=== PATIENT | female | born 1945 | race Caucasian/White ===

== ENCOUNTER 2019-07-13 09:09 | Inpatient (IN) ==
[2019-07-13] MEDS ORDERED: 0.9 % Sodium Chloride 1,000 ML IVC ONE (09:21)
[2019-07-13] MEDS ORDERED: Ipratropium/Albuterol Neb 3 ML IH ONE (09:21)
[2019-07-13] MEDS ORDERED: Benzonatate 100 MG CAPSULE PO ONE (09:22)
[2019-07-13] MEDS ORDERED: levoFLOXacin 500 MG/100 ML 500 MG/100 ML BAG IVPB ONE (09:47)
[2019-07-13 09:49] LABS: Basophils % 0.2 %; Eosinophils # 0.1 K/mcL (0.0-0.6); Eosinophils % 1.2 %; Hematocrit 43.4 % (35.3-44.9); Hemoglobin 13.9 g/dL (11.5-15.4); Immature Granulocytes % 0.2 % (0-4); Lymphocytes # 0.5 K/mcL (0.6-4.6); Lymphocytes % 12.2 %; Mean Corpuscular Hemoglobin 30.2 pg (28.0-33.3); Mean Corpuscular Volume 94.1 fL (83.0-100.0); Mean Platelet Volume 9.9 fL (9.4-12.4); Monocytes # 0.2 K/mcL (0.0-1.3); Monocytes % 5.3 %; Neutrophils # 3.4 K/mcL (1.6-8.9); Platelet Count 163 K/mcL (140-400); Red Blood Count 4.61 M/mcL (3.82-4.97); Red Cell Distribution Width 13.9 % (11.5-14.5); Segmented Neutrophils % 80.9 %; White Blood Count 4.2 K/mcL (4.3-11.1)
[2019-07-13 10:02] LABS: BUN/Creatinine Ratio 16 (6-26); Blood Urea Nitrogen 11 mg/dL (8-23); Calcium 8.8 mg/dL (8.6-10.3); Carbon Dioxide 30 mEq/L (23-29); Chloride 98 mEq/L (98-107); Glucose 108 mg/dL (70-105); Osmolality,Calculated 282 (280-300); Potassium 3.3 mEq/L (3.5-5.1); Sodium 136 mEq/L (136-145); eGFR For African Americans > 60 (> 60); eGFR For Non-African Americans > 60 (> 60)
[2019-07-13] MEDS ORDERED: *HR* Enoxaparin 40 MG/0.4 ML SYRINGE SQ ONE (10:22)
[2019-07-13] MEDS ORDERED: *HR* Heparin 5,000 UNIT/ML VIAL IVP PRN (10:34)
[2019-07-13] MEDS ORDERED: *HR* Heparin 5,000 UNIT/ML VIAL IVP ONE (10:34)
[2019-07-13] MEDS ORDERED: Ondansetron 4 MG/2 ML VIAL IVP PRN (10:37)
[2019-07-13] MEDS ORDERED: Naloxone 0.4 MG/ML INJ IVP PRN (10:37)
[2019-07-13] MEDS: Heparin 25,000 UNIT/250 ML D5W 25,000 UNIT/250 ML IV.SOLN IVC SCH (10:59)
[2019-07-13] MEDS: DilTIAZem 50 MG in 0.9 % Sodium Chloride 40 ML IVC SCH (11:07)
[2019-07-13 12:06] LABS: Adenovirus Not Detected (Not Detect); Bordetella Pertussis Not Detected (Not Detect); Chlamydophila pneumoniae Not Detected (Not Detect); Coronavirus 229E Not Detected (Not Detect); Coronavirus HKU1 Not Detected (Not Detect); Coronavirus NL63 Not Detected (Not Detect); Coronavirus OC43 Not Detected (Not Detect); Human Metapneumovirus DETECTED (Not Detect); Human Rhinovirus/Enterovirus Not Detected (Not Detect); Influenza A Subtype 2009 H1 Not Detected (Not Detect); Influenza B Not Detected (Not Detect); Mycoplasma pneumoniae Not Detected (Not Detect); Parainfluenza Virus 1 Not Detected (Not Detect); Parainfluenza Virus 2 Not Detected (Not Detect); Parainfluenza Virus 3 Not Detected (Not Detect); Parainfluenza Virus 4 Not Detected (Not Detect); Respiratory Syncytial Virus Not Detected (Not Detect)
[2019-07-13 12:44] LABS: Magnesium 1.9 mg/dL (1.6-2.6); Phosphorous 2.1 mg/dL (2.7-4.5)
[2019-07-13 12:47] LABS: Hematocrit 41.1 % (35.3-44.9); Hemoglobin 13.3 g/dL (11.5-15.4); Mean Corpuscular HGB Conc 32.4 g/dL (31.6-35.5); Mean Corpuscular Hemoglobin 30.4 pg (28.0-33.3); Mean Corpuscular Volume 93.8 fL (83.0-100.0); Platelet Count 144 K/mcL (140-400); Red Blood Count 4.38 M/mcL (3.82-4.97); White Blood Count 3.5 K/mcL (4.3-11.1)
[2019-07-13 12:52] LABS: INR 1.2; Prothrombin Time 13.3 Seconds (9.4-12.1)
[2019-07-13 12:54] LABS: Heparin anti-factor XA UFH 1.51 IU/mL (0.30-0.70)
[2019-07-13] MEDS: 0.9 % Sodium Chloride 1,000 ML IVC SCH (12:55)
[2019-07-13 12:57] LABS: Thyroid Stimulating Hormone 2.188 mcIU/mL (0.340-5.600)
[2019-07-13] MEDS: Ipratropium/Albuterol Neb 3 ML IH SCH ×2 (15:33→21:46)
[2019-07-14] MEDS: 0.9 % Sodium Chloride 1,000 ML IVC SCH (00:13)
[2019-07-14] MEDS: DilTIAZem 50 MG in 0.9 % Sodium Chloride 40 ML IVC SCH ×4 (04:06→16:39)
[2019-07-14] MEDS: Ipratropium/Albuterol Neb 3 ML IH SCH ×4 (04:13→20:29)
[2019-07-14 04:55] LABS: Hematocrit 38.4 % (35.3-44.9); Hemoglobin 12.5 g/dL (11.5-15.4); Immature Granulocytes % 0.6 % (0-4); Lymphocytes % 26.2 %; Mean Corpuscular HGB Conc 32.6 g/dL (31.6-35.5); Mean Corpuscular Hemoglobin 30.7 pg (28.0-33.3); Mean Corpuscular Volume 94.3 fL (83.0-100.0); Mean Platelet Volume 9.7 fL (9.4-12.4); Monocytes % 6.3 %; Platelet Count 144 K/mcL (140-400); Red Blood Count 4.07 M/mcL (3.82-4.97); Red Cell Distribution Width 14.4 % (11.5-14.5); Segmented Neutrophils % 65.7 %; White Blood Count 3.5 K/mcL (4.3-11.1)
[2019-07-14 04:56] LABS: Basophils % 0.3 %; Eosinophils % 0.9 %; Lymphocytes # 0.9 K/mcL (0.6-4.6); Monocytes # 0.2 K/mcL (0.0-1.3); Neutrophils # 2.3 K/mcL (1.6-8.9)
[2019-07-14 05:18] LABS: BUN/Creatinine Ratio 16 (6-26); Blood Urea Nitrogen 9 mg/dL (8-23); Calcium 7.9 mg/dL (8.6-10.3); Carbon Dioxide 25 mEq/L (23-29); Chloride 105 mEq/L (98-107); Glucose 103 mg/dL (70-105); Osmolality,Calculated 283 (280-300); Potassium 3.3 mEq/L (3.5-5.1); Sodium 137 mEq/L (136-145); eGFR For African Americans > 60 (> 60); eGFR For Non-African Americans > 60 (> 60)
[2019-07-14] MEDS ORDERED: levoFLOXacin 750 MG/150 ML 750 MG/150 ML BAG IVPB SCH (09:00)
[2019-07-14] MEDS: Heparin 25,000 UNIT/250 ML D5W 25,000 UNIT/250 ML IV.SOLN IVC SCH (09:28)
[2019-07-14] MEDS ORDERED: Warfarin perPT PO PRN (18:00)
[2019-07-14] MEDS ORDERED: *HR* Warfarin 3 MG TABLET PO ONE (18:00)
[2019-07-14] MEDS ORDERED: DilTIAZem CD (24hr) 120 MG CAP.ER.24H PO ONE ×2 (19:11→23:15)
[2019-07-15] MEDS: Ipratropium/Albuterol Neb 3 ML IH SCH ×2 (04:00→10:12)
[2019-07-15 04:56] LABS: Mean Corpuscular HGB Conc 31.6 g/dL (31.6-35.5); Mean Corpuscular Hemoglobin 29.4 pg (28.0-33.3); Mean Corpuscular Volume 93.1 fL (83.0-100.0); Mean Platelet Volume 9.6 fL (9.4-12.4); Platelet Count 159 K/mcL (140-400); Red Blood Count 4.08 M/mcL (3.82-4.97); Red Cell Distribution Width 14.2 % (11.5-14.5); White Blood Count 5.5 K/mcL (4.3-11.1)
[2019-07-15 05:03] LABS: INR 1.1; Prothrombin Time 12.1 Seconds (9.4-12.1)
[2019-07-15 05:15] LABS: BUN/Creatinine Ratio 23 (6-26); Blood Urea Nitrogen 11 mg/dL (8-23); Carbon Dioxide 24 mEq/L (23-29); Chloride 106 mEq/L (98-107); Glucose 102 mg/dL (70-105); Osmolality,Calculated 282 (280-300); Potassium 3.6 mEq/L (3.5-5.1); Sodium 136 mEq/L (136-145); eGFR For African Americans > 60 (> 60); eGFR For Non-African Americans > 60 (> 60)
[2019-07-15] MEDS: hydroCHLOROthiazide 25 MG TABLET PO SCH (07:46)
[2019-07-15] MEDS ORDERED: levoFLOXacin 750 MG TABLET PO SCH (09:00)
[2019-07-15] MEDS: methylPREDNISolone 125 MG/2 ML VIAL IVP SCH ×2 (10:27→15:33)
[2019-07-15] MEDS: Ipratropium Neb 0.5 MG NEBULIZER IH SCH ×3 (11:13→21:41)
[2019-07-15] MEDS: DilTIAZem CD (24hr) 240 MG CAP.ER.24H PO SCH (12:33)
[2019-07-15] MEDS: Heparin 25,000 UNIT/250 ML D5W 25,000 UNIT/250 ML IV.SOLN IVC SCH (12:34)
[2019-07-15] MEDS: *HR* Heparin 5,000 UNIT/ML VIAL IVP PRN (12:37)
[2019-07-15] MEDS ORDERED: Doxycycline 100 MG in 0.9 % Sodium Chloride Mini Bag 100 ML IVPB SCH (15:00)
[2019-07-15] MEDS: Cefepime HCl 1,000 MG in Water for inj. (sterile) 10 ML IVP SCH (15:33)
[2019-07-15] MEDS ORDERED: *HR* Warfarin 3 MG TABLET PO ONE (18:00)
[2019-07-15] MEDS ORDERED: METRONIDAZOLE TP PRN (23:32)
[2019-07-16] MEDS: methylPREDNISolone 125 MG/2 ML VIAL IVP SCH ×3 (00:11→17:23)
[2019-07-16] MEDS: Cefepime HCl 1,000 MG in Water for inj. (sterile) 10 ML IVP SCH ×3 (00:11→17:23)
[2019-07-16 03:05] LABS: Hematocrit 38.2 % (35.3-44.9); Hemoglobin 12.3 g/dL (11.5-15.4); Immature Granulocytes % 0.8 % (0-4); Lymphocytes # 0.4 K/mcL (0.6-4.6); Lymphocytes % 15.3 %; Mean Corpuscular HGB Conc 32.2 g/dL (31.6-35.5); Mean Corpuscular Hemoglobin 30.2 pg (28.0-33.3); Mean Corpuscular Volume 93.9 fL (83.0-100.0); Mean Platelet Volume 10.3 fL (9.4-12.4); Monocytes # 0.1 K/mcL (0.0-1.3); Monocytes % 2.4 %; Platelet Count 157 K/mcL (140-400); Red Blood Count 4.07 M/mcL (3.82-4.97); Red Cell Distribution Width 14.1 % (11.5-14.5); Segmented Neutrophils % 81.5 %
[2019-07-16 03:06] LABS: White Blood Count 2.5 K/mcL (4.3-11.1)
[2019-07-16 03:11] LABS: Heparin anti-factor XA UFH 0.41 IU/mL (0.30-0.70); INR 1.3; Prothrombin Time 15.1 Seconds (9.4-12.1)
[2019-07-16 03:24] LABS: Magnesium 1.9 mg/dL (1.6-2.6)
[2019-07-16 03:25] LABS: BUN/Creatinine Ratio 20 (6-26); Blood Urea Nitrogen 10 mg/dL (8-23); Calcium 8.4 mg/dL (8.6-10.3); Carbon Dioxide 23 mEq/L (23-29); Chloride 103 mEq/L (98-107); Glucose 143 mg/dL (70-105); Osmolality,Calculated 284 (280-300); Potassium 3.4 mEq/L (3.5-5.1); Sodium 136 mEq/L (136-145); eGFR For African Americans > 60 (> 60); eGFR For Non-African Americans > 60 (> 60)
[2019-07-16] MEDS: Ipratropium Neb 0.5 MG NEBULIZER IH SCH ×4 (03:36→22:05)
[2019-07-16] MEDS ORDERED: Potassium Phosphate 44 MEQ in 0.9 % Sodium Chloride 250 ML IVPB ONE ×2 (07:12→11:39)
[2019-07-16] MEDS: DilTIAZem CD (24hr) 240 MG CAP.ER.24H PO SCH (08:35)
[2019-07-16] MEDS: levoFLOXacin 750 MG/150 ML 750 MG/150 ML BAG IVPB SCH (08:35)
[2019-07-16] MEDS: hydroCHLOROthiazide 25 MG TABLET PO SCH (08:35)
[2019-07-16] MEDS ORDERED: DilTIAZem CD (24hr) 240 MG CAP.ER.24H PO SCH (09:00)
[2019-07-16] MEDS: Heparin 25,000 UNIT/250 ML D5W 25,000 UNIT/250 ML IV.SOLN IVC SCH (10:55)
[2019-07-16] MEDS: *HR* Heparin 5,000 UNIT/ML VIAL IVP PRN (10:56)
[2019-07-16] MEDS ORDERED: *HR* Warfarin 3 MG TABLET PO ONE (18:00)
[2019-07-17] MEDS: Cefepime HCl 1,000 MG in Water for inj. (sterile) 10 ML IVP SCH ×2 (00:40→07:48)
[2019-07-17 01:01] LABS: Hematocrit 39.3 % (35.3-44.9); Hemoglobin 12.9 g/dL (11.5-15.4); Mean Corpuscular HGB Conc 32.8 g/dL (31.6-35.5); Mean Corpuscular Hemoglobin 29.6 pg (28.0-33.3); Mean Corpuscular Volume 90.1 fL (83.0-100.0); Mean Platelet Volume 10.1 fL (9.4-12.4); Platelet Count 245 K/mcL (140-400); Red Blood Count 4.36 M/mcL (3.82-4.97)
[2019-07-17 01:08] LABS: Heparin anti-factor XA UFH 0.24 IU/mL (0.30-0.70)
[2019-07-17 01:09] LABS: INR 1.9
[2019-07-17 01:23] LABS: BUN/Creatinine Ratio 30 (6-26); Blood Urea Nitrogen 21 mg/dL (8-23); Calcium 8.9 mg/dL (8.6-10.3); Carbon Dioxide 26 mEq/L (23-29); Chloride 100 mEq/L (98-107); Glucose 163 mg/dL (70-105); Osmolality,Calculated 287 (280-300); Potassium 3.5 mEq/L (3.5-5.1); Sodium 135 mEq/L (136-145); eGFR For African Americans > 60 (> 60); eGFR For Non-African Americans > 60 (> 60)
[2019-07-17] MEDS: *HR* Heparin 5,000 UNIT/ML VIAL IVP PRN (02:27)
[2019-07-17] MEDS: Ipratropium Neb 0.5 MG NEBULIZER IH SCH ×4 (03:50→22:24)
[2019-07-17] MEDS: methylPREDNISolone 125 MG/2 ML VIAL IVP SCH ×2 (06:00→16:34)
[2019-07-17] MEDS: Heparin 25,000 UNIT/250 ML D5W 25,000 UNIT/250 ML IV.SOLN IVC SCH ×2 (07:09→07:46)
[2019-07-17] MEDS: DilTIAZem 50 MG in 0.9 % Sodium Chloride 40 ML IVC SCH (07:09)
[2019-07-17] MEDS: levoFLOXacin 750 MG/150 ML 750 MG/150 ML BAG IVPB SCH (07:48)
[2019-07-17] MEDS: DilTIAZem CD (24hr) 240 MG CAP.ER.24H PO SCH (07:49)
[2019-07-17] MEDS: hydroCHLOROthiazide 25 MG TABLET PO SCH (07:49)
[2019-07-17] MEDS ORDERED: levoFLOXacin 750 MG TABLET PO SCH (09:00)
[2019-07-17] MEDS: Furosemide 20 MG/2 ML VIAL IVP SCH ×2 (10:42→21:48)
[2019-07-17] MEDS: Cefepime HCl 2,000 MG in Water for inj. (sterile) 20 ML IVP SCH ×2 (16:35→23:58)
[2019-07-18] MEDS: Ipratropium Neb 0.5 MG NEBULIZER IH SCH ×4 (03:57→21:22)
[2019-07-18 05:07] LABS: INR 2.2; Prothrombin Time 25.3 Seconds (9.4-12.1)
[2019-07-18] MEDS: methylPREDNISolone 125 MG/2 ML VIAL IVP SCH ×2 (06:14→17:47)
[2019-07-18] MEDS ORDERED: Lidocaine -MPF 2% 2 ML VIAL ONE ×2 (06:41)
[2019-07-18] MEDS ORDERED: *HR* Propofol 200 MG/20 ML VIAL IVP ONE ×3 (06:41→07:30)
[2019-07-18] MEDS: Cefepime HCl 2,000 MG in Water for inj. (sterile) 20 ML IVP SCH ×2 (09:43→17:47)
[2019-07-18] MEDS: Furosemide 20 MG/2 ML VIAL IVP SCH ×2 (09:43→22:28)
[2019-07-18] MEDS: levoFLOXacin 750 MG/150 ML 750 MG/150 ML BAG IVPB SCH (09:44)
[2019-07-18] MEDS: DilTIAZem CD (24hr) 240 MG CAP.ER.24H PO SCH (11:04)
[2019-07-18] MEDS: hydroCHLOROthiazide 25 MG TABLET PO SCH (11:04)
[2019-07-18 15:15] LABS: Appearance of Body Fluid Hazy (Clear); Volume of Body Fluid 30 mL
[2019-07-18 15:22] LABS: Appearance of Body Fluid Hazy (Clear); Volume of Body Fluid 15 mL
[2019-07-18] MEDS ORDERED: *HR* Warfarin 1 MG TABLET PO ONE (18:00)
[2019-07-19] MEDS: Cefepime HCl 2,000 MG in Water for inj. (sterile) 20 ML IVP SCH ×2 (00:45→08:32)
[2019-07-19] MEDS: Ipratropium Neb 0.5 MG NEBULIZER IH SCH ×2 (03:43→09:41)
[2019-07-19] MEDS: methylPREDNISolone 125 MG/2 ML VIAL IVP SCH (05:50)
[2019-07-19 06:22] LABS: Basophils % 0.4 %; Hematocrit 38.1 % (35.3-44.9); Hemoglobin 12.7 g/dL (11.5-15.4); Lymphocytes # 0.5 K/mcL (0.6-4.6); Lymphocytes % 6.1 %; Mean Corpuscular HGB Conc 33.3 g/dL (31.6-35.5); Mean Corpuscular Hemoglobin 30.5 pg (28.0-33.3); Mean Corpuscular Volume 91.6 fL (83.0-100.0); Mean Platelet Volume 9.8 fL (9.4-12.4); Monocytes # 0.6 K/mcL (0.0-1.3); Neutrophils # 6.3 K/mcL (1.6-8.9); Platelet Count 300 K/mcL (140-400); Red Blood Count 4.16 M/mcL (3.82-4.97); Red Cell Distribution Width 14.1 % (11.5-14.5); Segmented Neutrophils % 82.5 %; White Blood Count 7.6 K/mcL (4.3-11.1)
[2019-07-19 06:26] LABS: INR 2.3; Prothrombin Time 25.7 Seconds (9.4-12.1)
[2019-07-19 06:42] LABS: BUN/Creatinine Ratio 41 (6-26); Blood Urea Nitrogen 32 mg/dL (8-23); Calcium 8.3 mg/dL (8.6-10.3); Carbon Dioxide 32 mEq/L (23-29); Chloride 98 mEq/L (98-107); Glucose 151 mg/dL (70-105); Magnesium 1.8 mg/dL (1.6-2.6); Osmolality,Calculated 296 (280-300); Phosphorous 3.9 mg/dL (2.7-4.5); Potassium 2.6 mEq/L (3.5-5.1); Sodium 138 mEq/L (136-145); eGFR For African Americans > 60 (> 60); eGFR For Non-African Americans > 60 (> 60)
[2019-07-19] MEDS: DilTIAZem CD (24hr) 240 MG CAP.ER.24H PO SCH (08:24)
[2019-07-19] MEDS: Furosemide 20 MG/2 ML VIAL IVP SCH (08:25)
[2019-07-19] MEDS: hydroCHLOROthiazide 25 MG TABLET PO SCH (08:30)
[2019-07-19] MEDS: levoFLOXacin 750 MG/150 ML 750 MG/150 ML BAG IVPB SCH (08:32)
[2019-07-19 11:08] VITALS: BP 115/82
[2019-07-19] MEDS ORDERED: FLU Vac QV 19-20 (6Month+)/PF 0.5 ML SYRINGE IM ONE (11:14)
[2019-07-19] MEDS ORDERED: *HR* Warfarin 1 MG TABLET PO ONE (18:00)
[2019-07-21 03:35] LABS: Influenza A PCR Body Fluid NOT DETECTED; Influenza B PCR Body Fluid NOT DETECTED; RVP Body Fluid Source LLL BAL
[2019-07-21 10:33] LABS: RSV PCR Body Fluid NOT DETECTED
[2019-07-22 08:42] LABS: Influenza A PCR Body Fluid INVALID; Influenza B PCR Body Fluid INVALID; RVP Body Fluid Source BAL RLL
[2019-07-22 11:23] LABS: RSV PCR Body Fluid INVALID
== END 2019-07-19 14:30 | disposition home or self-care (01) | DRG 871 ==
LOC: 2ANU 09:09 → EMEROOARM 09:09 → SUATTDRO 10:37 → 2ANU 12:02 → SUATTDRO 07-14 12:41
PROVIDERS: ADMIT Internal Medicine; ATTEND Internal Medicine